=== PATIENT | male | born 1960 | race Caucasian/White ===

== ENCOUNTER 2022-02-28 05:32 | Outpatient (CLI) | payer SELFPAY ==
[~2022-02-28] VITALS: Ht 180.3 cm; Wt 102.1 kg
[2022-02-28] MEDS ORDERED: ACHD5005 PO (09:27)
[2022-02-28] MEDS ORDERED: ASPI-999 PO (09:27)
[2022-02-28] MEDS ORDERED: SIMV20TA26 PO (09:27)
[2022-02-28] MEDS ORDERED: CARV12.53 PO (09:27)
[2022-02-28] MEDS ORDERED: PANT40TA52 PO (09:27)
[2022-02-28] MEDS ORDERED: ROPI0.5T4 PO (09:27)
[2022-03-01] MEDS ORDERED: ACHD5005 PO (09:38)
== END 2022-02-28 13:32 | disposition home or self-care (01) ==
LOC: PREOP 05:32
PROVIDERS: ATTEND Otolaryngology Otolaryngology/Facial Plastic Surgery
DX: Z01.818 Encounter for other preprocedural examination (principal)

== ENCOUNTER 2022-03-01 06:03 | Day surgery (SDC) | payer SELFPAY ==
[2022-03-01] VITALS (10 sets, daily range): BP systolic 101–137; BP diastolic 68–89
[~2022-03-01] VITALS: Ht 180.3 cm; Wt 102.1 kg
[~2022-03-01 06:03] MED LIST: ACHD5005 PO; ASPI-999 PO; CARV12.53 PO; PANT40TA52 PO; ROPI0.5T4 PO; SIMV20TA26 PO
[2022-03-01] MEDS ORDERED: LACTATED RINGERS 1,000 ML IV PRN ×2 (06:15)
[2022-03-01 06:49] LABS: BASOPHILS # (AUTO) 0.1 10^3/uL (0.0-0.1); BASOPHILS % (AUTO) 1 % (0-10); EOSINOPHILS # (AUTO) 0.3 10^3/uL (0.0-0.3); EOSINOPHILS % (AUTO) 3 % (0-10); HEMATOCRIT 42 % (40-54); HEMOGLOBIN 13.6 g/dL (13.3-17.7); LYMPHOCYTES # (AUTO) 1.7 10^3/uL (1.0-4.0); LYMPHOCYTES % (AUTO) 20 % (12-44); MEAN CORPUSCULAR HEMOGLOBIN 29 pg (25-34); MEAN CORPUSCULAR HGB CONC 33 g/dL (32-36); MEAN CORPUSCULAR VOLUME 89 fL (80-99); MEAN PLATELET VOLUME 8.9 fL (9.0-12.2); MONOCYTES # (AUTO) 0.6 10^3/uL (0.0-1.0); MONOCYTES % (AUTO) 7 % (0-12); NEUTROPHILS # (AUTO) 6.2 10^3/uL (1.8-7.8); NEUTROPHILS % (AUTO) 70 % (42-75); PLATELET COUNT 260 10^3/uL (130-400); WHITE BLOOD COUNT 8.8 10^3/uL (4.3-11.0)
[2022-03-01] MEDS ORDERED: LIDOCAINE/EPI 2% 1:200,00 (XYLOCAINE) 20 ML VIAL ONE (06:49)
[2022-03-01 06:56] LABS: POTASSIUM 4.2 MMOL/L (3.6-5.0)
[2022-03-01 06:58] LABS: CALCIUM 9.1 MG/DL (8.5-10.1)
[2022-03-01 07:02] LABS: CREATININE SERUM 0.77 MG/DL (0.60-1.30)
[2022-03-01] MEDS ORDERED: fentaNYL INJ 100 MCG/2 ML AMP ONE (07:03)
[2022-03-01] MEDS ORDERED: SEVOFLURANE (ULTANE) 15 ML INHAL SOLN ONE (07:03)
[2022-03-01] MEDS ORDERED: proPOfol 200 MG/20 ML (DIPRIVAN) VIAL IV ONE (07:03)
[2022-03-01] MEDS ORDERED: ROCURONIUM 50 MG/5 ML (ZEMURON) VIAL IV ONE (07:03)
[2022-03-01] MEDS ORDERED: LIDOCAINE PF 2% 5 ML (XYLOCAINE) VIAL ONE (07:03)
--- NOTE | 2022-03-01 07:03 | Progress Note-Pre Operative ---
Pre-Operative Progress Note Date of Available H&P: Mar 01, 2022 Date H&P Reviewed: Mar 01, 2022 Time H&P Reviewed: 06:30 History & Physical: H&P Reviewed, Patient Examed, No changes noted Changes from last HP none Pre-Operative Diagnosis: Left Hypopharyngeal mass JOSETTE FOREMAN MD Mar 01, 2022 07:03
[2022-03-01] MEDS ORDERED: MIDAZOLAM 2 MG/2 ML (VERSED) VIAL ONE (07:04)
[2022-03-01] MEDS ORDERED: ONDANSETRON 4 MG/2 ML (SDV) Z0FRAN ONE (07:06)
[2022-03-01] MEDS ORDERED: LIDOCAINE/EPI 2% 1:200,00 (XYLOCAINE) 10 ML VIAL INJ ONE (08:00)
[2022-03-01] MEDS ORDERED: GLYCOPYRROLATE 0.2 MG/ML (ROBINUL) 2 ML VIAL ONE (08:42)
[2022-03-01] MEDS ORDERED: NEOSTIGMINE (BLOXIVERZ ) 1 MG/1ML 10 ML VIAL ONE (08:42)
--- NOTE | 2022-03-01 08:50 | Progress Note-Post Operative ---
Post-Operative Progess Note Surgeon (s)/Tissue Technician (s) Surgeon JOSETTE FOREMAN MD Tissue Technician n/a Pre-Operative Diagnosis Left Hypopharyngeal mass Post-Operative Diagnosis same Post-Op Procedure Note Date of Procedure: Mar 01, 2022 Name of Procedure Performed: Direcgt Laryngoscopy with Biopsies of Left Hypopharyngeal Mass Description & Findings Description and Findings: n/a Anesthesia Type get Estimated Blood Loss minimal Packing none. Specimen(s) collected/removed left hypopharyngeal biopsy for frozen JOSETTE FOREMAN MD Mar 01, 2022 08:50
[2022-03-01] MEDS ORDERED: PROMETHAZINE INJ 25 MG/ML (PHENERGAN) AMP IV PRN (09:00)
[2022-03-01] MEDS ORDERED: morphine INJ 10 MG/ML 1ML (SYR OR VIAL) IVP ONE (09:00)
[2022-03-01] MEDS ORDERED: HYDROcodone/APAP 5 MG/325 MG (LORTAB) TAB PO PRN (09:00)
[2022-03-01] MEDS ORDERED: MEPERIDINE (DEMEROL) INJ 50 MG/ML IVP ONE (09:00)
[2022-03-01] MEDS ORDERED: ONDANSETRON 4 MG/2 ML (SDV) Z0FRAN IVP PRN (09:00)
--- NOTE | 2022-03-01 09:00 | Anesthesia-General Post-Op ---
General Patient Condition Mental Status/LOC: Same as Preop Cardiovascular: Satisfactory Nausea/Vomiting: Absent Respiratory: Satisfactory Pain: Controlled Complications: Absent Post Op Complications Complications None Follow Up Care/Instructions Patient Instructions None needed. Anesthesia/Patient Condition Patient Condition Patient is doing well, no complaints, stable vital signs, no apparent adverse anesthesia problems. No complications reported per nursing. NICK BRAXTON CRNA Mar 01, 2022 09:00
[2022-03-01] MEDS ORDERED: ACHD5005 PO (09:38)
[2022-03-01] MEDS ORDERED: RT-ALBUTEROL SULF 2.5 MG/3 ML PRE-MIX VIAL INH ONE (11:00)
== END 2022-03-01 11:13 | disposition home or self-care (01) ==
LOC: SDC 06:03
PROVIDERS: ATTEND Otolaryngology Otolaryngology/Facial Plastic Surgery
DX: D00.08 Carcinoma in situ of pharynx (principal); F17.210 Nicotine dependence, cigarettes, uncomplicated
CPT/HCPCS: 36415; 80048; 85025; 87081; 93005; 94640

== ENCOUNTER → 2023-03-29 | Outpatient (CLI) | payer MEDICAID ==
[~2023-03-29] MED LIST changes: +ROPI0.5T37 PO; -ROPI0.5T4 PO
== END ==
LOC: CARD 11:06
PROVIDERS: ATTEND Internal Medicine Hematology & Oncology
DX: Z51.12 Encounter for antineoplastic immunotherapy (principal); C34.31 Malignant neoplasm of lower lobe, right bronchus or lung; I10 Essential (primary) hypertension
CPT/HCPCS: 93306